=== PATIENT | female | born 1970 | race Caucasian/White ===

== ENCOUNTER 2018-02-12 11:16 | Emergency (ER) | payer MEDICAID ==
[~2018-02-12] VITALS: Ht 167.6 cm; Wt 80.7 kg
[2018-02-12] MEDS ORDERED: METF10007 PO (11:59)
[2018-02-12] MEDS ORDERED: CYCL-259 PO (11:59)
[2018-02-12] MEDS ORDERED: CITA40TA5 PO (11:59)
[2018-02-12] MEDS ORDERED: MELO15TA24 PO (11:59)
[2018-02-12] MEDS ORDERED: HYDR12.58 PO (11:59)
[2018-02-12] MEDS ORDERED: METH5TAB6 PO (11:59)
[2018-02-12] MEDS ORDERED: MUPI22OI2 TP (11:59)
[2018-02-12] MEDS ORDERED: TRAZ-136 PO (11:59)
[2018-02-12] MEDS ORDERED: LIDOCAINE-MPF 2%, 2ML ONE ×2 (12:19→12:41)
[2018-02-12] MEDS ORDERED: LIDOCAINE-MPF 1%, 5ML INFIL ONE (13:00)
[2018-02-12] MEDS ORDERED: BICILLIN-LA 1,200,000 UNITS/2 ML IM ONE (13:30)
[2018-02-12 14:12] VITALS: BP 96/45
== END 2018-02-12 14:14 | disposition home or self-care (01) ==
LOC: ED 13:25
DX: K04.7 Periapical abscess without sinus (principal); E11.9 Type 2 diabetes mellitus without complications; I10 Essential (primary) hypertension; Z87.891 Personal history of nicotine dependence
CPT/HCPCS: 10060; 96372; 99283; J0561

== ENCOUNTER 2018-02-15 13:50 | Inpatient (IN) | payer MEDICAID ==
[~2018-02-15] VITALS: Ht 167.6 cm; Wt 101.8 kg
[~2018-02-15 13:50] MED LIST: CITA40TA5 PO; CYCL-259 PO; HYDR12.58 PO; MELO15TA24 PO; METF10007 PO; METH5TAB6 PO; MUPI22OI2 TP; TRAZ-136 PO
[2018-02-15] MEDS ORDERED: FLUT15.87 NAS (14:28)
[2018-02-15] MEDS ORDERED: MORPHINE SULFATE 4 MG/ML, 1ML IVPush PRN ×2 (14:30→21:00)
[2018-02-15] MEDS ORDERED: PIPERACILLIN/TAZO/PMX 3.375GM 50 ML IVPB ONE (14:30)
[2018-02-15] MEDS ORDERED: MORPHINE SULFATE 4 MG/ML, 1ML ONE (14:56)
[2018-02-15] MEDS ORDERED: PIPERACILLIN/TAZO/PMX 3.375GM 50 ML ONE (14:56)
[2018-02-15 15:02] LABS: BASOPHILS # (AUTO) 0.01 x10^3/uL (0-0.1); BASOPHILS % (AUTO) 0 % (0-1); EOSINOPHILS % (AUTO) 1 % (1-7); LYMPHOCYTES # (AUTO) 1.21 x10^3/uL (1-3.4); LYMPHOCYTES % (AUTO) 8 % (22-44); MD NO; MEAN CORPUSCULAR HEMOGLOBIN 30.7 pg (27.0-34.8); MEAN CORPUSCULAR HGB CONC 33.6 g/dL (32.4-35.8); MEAN CORPUSCULAR VOLUME 91.4 fL (80-100); MEAN PLATELET VOLUME 7.9 fL (7.4-10.4); MONOCYTES # (AUTO) 0.65 x10^3/uL (0.2-0.8); MONOCYTES % (AUTO) 4 % (2-9); NEUTROPHILS # (AUTO) 13.21 x10^3/uL (1.8-6.8); NEUTROPHILS % (AUTO) 87 % (42-75); PLATELET COUNT 470 x10^3/uL (130-400); RED BLOOD COUNT 4.16 x10^6/uL (3.82-5.3); RED CELL DISTRIBUTION WIDTH 13.3 % (9.6-15.2)
[2018-02-15 15:09] LABS: ALANINE AMINOTRANSFERASE 18 U/L (12-78); ALBUMIN 3.3 g/dL (3.4-5.0); ANION GAP 8 mmol/L (5-15); CALCIUM 9.4 mg/dL (8.5-10.1); CHLORIDE 97 mmol/L (98-107); CREATININE 0.86 mg/dL (0.55-1.02)
[2018-02-15 15:11] LABS: ALKALINE PHOSPHATASE 112 U/L (45-117); BILIRUBIN,TOTAL 0.3 mg/dL (0.2-1.0); TOTAL PROTEIN 8.7 g/dL (6.4-8.2)
[2018-02-15] MEDS ORDERED: OXYcodone/APAP 10/325MG TABLET ONE (15:17)
[2018-02-15] MEDS ORDERED: OXYcodone/APAP 10/325MG TABLET PO ONE (15:30)
[2018-02-15] MEDS ORDERED: OMNIPAQUE 350 MG/ML, 75ML BOTTLE ONE (16:07)
[2018-02-15] MEDS ORDERED: BUPIVACAINE 0.25% ONE (19:52)
[2018-02-15] MEDS ORDERED: LIDOCAINE 1%-EPI 1:100K, 30ML ONE (19:52)
[2018-02-15] MEDS ORDERED: EPINEPHRINE 1 MG/ML, 1ML ONE (19:57)
[2018-02-15] MEDS ORDERED: OXYMETAZOLINE NASAL SPRAY 0.05%, 15ML ONE (19:57)
[2018-02-15] MEDS ORDERED: FENTANYL PF 250 MCG/5ML ONE (20:11)
[2018-02-15] MEDS ORDERED: MIDAZOLAM 1 MG/ML, 2ML ONE (20:11)
[2018-02-15] MEDS ORDERED: FLUTICASONE NASAL SPRAY 16GM NAS SCH (20:30)
[2018-02-15] MEDS ORDERED: ONDANSETRON ODT 4 MG PO PRN (20:30)
[2018-02-15] MEDS ORDERED: hydrALAzine 20 MG/ML, 1ML IVPush PRN (20:30)
[2018-02-15] MEDS ORDERED: OXYcodone/APAP 5/325MG TABLET PO PRN (20:30)
[2018-02-15] MEDS ORDERED: DOCUSATE 100 MG CAPSULE PO PRN (20:30)
[2018-02-15] MEDS ORDERED: OXYcodone 5 MG/5 ML ORAL.SOL UDC PO PRN (21:00)
[2018-02-15] MEDS ORDERED: EPHEDRINE 50 MG/ML, 1ML IVPush PRN (21:00)
[2018-02-15] MEDS ORDERED: FENTANYL PF 100 MCG/2ML IV PRN (21:00)
[2018-02-15] MEDS ORDERED: PROMETHAZINE 25 MG/ML, 1ML IV PRN (21:00)
[2018-02-15] MEDS ORDERED: MEPERIDINE/PF 25MG/0.5ML IVPush PRN (21:00)
[2018-02-15] MEDS ORDERED: HYDROmorphone 1 MG/ML, 1ML IV PRN (21:00)
[2018-02-15] MEDS ORDERED: ONDANSETRON 2MG/ML, 2ML IV PRN (21:00)
[2018-02-15] MEDS ORDERED: ALBUTEROL SULFATE 2.5 MG/3 ML NPPB PRN (21:00)
[2018-02-15] MEDS ORDERED: PROMETHAZINE 12.5 MG SUPP PR PRN (21:00)
[2018-02-15] MEDS ORDERED: hydrALAzine 20 MG/ML, 1ML IV PRN (21:00)
[2018-02-15] MEDS ORDERED: HALOPERIDOL 5 MG/ML IV PRN (21:00)
[2018-02-15] MEDS ORDERED: ONDANSETRON ODT 8 MG PO PRN (21:00)
[2018-02-15] MEDS ORDERED: MIDAZOLAM 1 MG/ML, 2ML IV PRN (21:00)
[2018-02-15] MEDS ORDERED: LABETALOL 5MG/ML, 20ML IV PRN (21:00)
[2018-02-15] MEDS ORDERED: LORazepam 2 MG/ML, 1ML IVPush PRN (21:00)
[2018-02-15] MEDS ORDERED: OXYcodone 5 MG/5 ML ORAL.SOL UDC ONE (21:13)
[2018-02-15] MEDS ORDERED: FENTANYL PF 100 MCG/2ML ONE (21:13)
[2018-02-15 22:23] VITALS: BP 115/69
[2018-02-15] MEDS: CHLORHEXIDINE 15 ML BOTTLE MM SCH (23:04)
[2018-02-16 02:39] VITALS: BP 95/53
[2018-02-16 07:06] VITALS: BP 88/55
[2018-02-16 07:22] LABS: MEAN CORPUSCULAR HGB CONC 33.3 g/dL (32.4-35.8); MEAN CORPUSCULAR VOLUME 90.2 fL (80-100); MEAN PLATELET VOLUME 7.6 fL (7.4-10.4); PLATELET COUNT 475 x10^3/uL (130-400); RED BLOOD COUNT 3.87 x10^6/uL (3.82-5.3); RED CELL DISTRIBUTION WIDTH 13.4 % (9.6-15.2)
[2018-02-16 07:33] LABS: ANION GAP 7 mmol/L (5-15); CALCIUM 9.3 mg/dL (8.5-10.1); CHLORIDE 99 mmol/L (98-107); CREATININE 0.89 mg/dL (0.55-1.02)
[2018-02-16 07:53] LABS: BASOPHILS # (AUTO) 0.02 x10^3/uL (0-0.1); BASOPHILS % (AUTO) 0 % (0-1); EOSINOPHILS % (AUTO) 0 % (1-7); LYMPHOCYTES # (AUTO) 0.67 x10^3/uL (1-3.4); LYMPHOCYTES % (AUTO) 5 % (22-44); MD SCAN; MONOCYTES # (AUTO) 0.32 x10^3/uL (0.2-0.8); MONOCYTES % (AUTO) 2 % (2-9); NEUTROPHILS # (AUTO) 13.55 x10^3/uL (1.8-6.8); NEUTROPHILS % (AUTO) 93 % (42-75)
[2018-02-16] MEDS ORDERED: SODIUM CHLORIDE 0.9% 1,000 ML IV SCH (08:00)
[2018-02-16] MEDS ORDERED: SODIUM CHLORIDE 0.9%, 500ML IVBOLUS ONE (08:00)
[2018-02-16] MEDS: CITALOPRAM 20 MG TABLET PO SCH (08:09)
[2018-02-16] MEDS: METHIMAZOLE 5 MG TAB PO SCH (08:10)
[2018-02-16] MEDS: MELOXICAM 15 MG TABLET PO SCH (08:10)
[2018-02-16] MEDS: CYCLOBENZAPRINE 10 MG TABLET PO SCH (08:10)
[2018-02-16] MEDS: CHLORHEXIDINE 15 ML BOTTLE MM SCH ×3 (08:11→20:41)
[2018-02-16] MEDS: metFORMIN 500 MG TABLET PO SCH (08:11)
[2018-02-16] MEDS: TRAZODONE 50MG TABLET PO SCH (08:12)
[2018-02-16] MEDS ORDERED: HYDROCHLOROTHIAZIDE 12.5 MG CAPSULE PO SCH ×2 (09:00)
[2018-02-16] MEDS: SODIUM CHLORIDE 0.9% 1,000 ML IV SCH (11:27)
[2018-02-16] MEDS: PIPERACILLIN/TAZO/PMX 3.375GM 50 ML IV SCH ×3 (11:27→22:39)
[2018-02-16 13:54] VITALS: BP 96/52
[2018-02-16] MEDS ORDERED: PHARMACOKINETIC MONITORING MC PRN (19:30)
[2018-02-16] MEDS ORDERED: VANCOMYCIN PER PHARMACY MC PRN (19:30)
[2018-02-16] MEDS ORDERED: PHARMACOKINETIC CONSULTATION MC ONE (19:30)
[2018-02-16 19:56] VITALS: BP 98/60
[2018-02-16] MEDS ORDERED: PROPOFOL 10 MG/ML, 20ML ONE (20:16)
[2018-02-16] MEDS ORDERED: ROCURONIUM 10 MG/ML,10ML ONE (20:16)
[2018-02-16] MEDS ORDERED: ONDANSETRON 2MG/ML, 2ML ONE (20:16)
[2018-02-16] MEDS ORDERED: DEXAMETHASONE 4 MG/ML, 1ML ONE (20:16)
[2018-02-16] MEDS ORDERED: SUCCINYLCHOLINE 20 MG/ML, 10ML ONE (20:16)
[2018-02-16] MEDS ORDERED: KETOROLAC 30 MG/1 ML ONE (20:16)
[2018-02-16] MEDS: VANCOMYCIN 1,500 MG in SODIUM CHLORIDE 0.9% 250 ML IV SCH (20:41)
[2018-02-16 21:01] VITALS: BP 94/61
[2018-02-16 21:52] VITALS: BP 91/61
[2018-02-17 01:24] VITALS: BP 92/57
[2018-02-17] MEDS: SODIUM CHLORIDE 0.9% 1,000 ML IV SCH ×2 (02:03→21:20)
[2018-02-17] MEDS: PIPERACILLIN/TAZO/PMX 3.375GM 50 ML IV SCH ×2 (04:43→11:10)
[2018-02-17 05:30] LABS: BASOPHILS # (AUTO) 0.08 x10^3/uL (0-0.1); BASOPHILS % (AUTO) 1 % (0-1); EOSINOPHILS # (AUTO) 0.31 x10^3/uL (0-0.4); EOSINOPHILS % (AUTO) 3 % (1-7); LYMPHOCYTES % (AUTO) 25 % (22-44); MD NO; MEAN CORPUSCULAR HEMOGLOBIN 30.9 pg (27.0-34.8); MEAN CORPUSCULAR HGB CONC 33.6 g/dL (32.4-35.8); MEAN CORPUSCULAR VOLUME 92.1 fL (80-100); MEAN PLATELET VOLUME 7.7 fL (7.4-10.4); MONOCYTES # (AUTO) 0.75 x10^3/uL (0.2-0.8); MONOCYTES % (AUTO) 8 % (2-9); NEUTROPHILS # (AUTO) 5.68 x10^3/uL (1.8-6.8); NEUTROPHILS % (AUTO) 62 % (42-75); PLATELET COUNT 387 x10^3/uL (130-400); RED BLOOD COUNT 3.14 x10^6/uL (3.82-5.3); RED CELL DISTRIBUTION WIDTH 13.3 % (9.6-15.2)
[2018-02-17 05:34] LABS: ALBUMIN 2.3 g/dL (3.4-5.0); ANION GAP 7 mmol/L (5-15); CALCIUM 8.4 mg/dL (8.5-10.1); CHLORIDE 105 mmol/L (98-107); CREATININE 1.07 mg/dL (0.55-1.02)
[2018-02-17] MEDS ORDERED: PHARMACY MAY ADJ FOR RENAL FX MC PRN (06:30)
[2018-02-17 06:54] VITALS: BP 102/54
[2018-02-17] MEDS: TRAZODONE 50MG TABLET PO SCH (09:00)
[2018-02-17] MEDS: CITALOPRAM 20 MG TABLET PO SCH (09:14)
[2018-02-17] MEDS: metFORMIN 500 MG TABLET PO SCH (09:14)
[2018-02-17] MEDS: CYCLOBENZAPRINE 10 MG TABLET PO SCH (09:14)
[2018-02-17] MEDS: MELOXICAM 15 MG TABLET PO SCH (09:14)
[2018-02-17] MEDS: VANCOMYCIN 1,500 MG in SODIUM CHLORIDE 0.9% 250 ML IV SCH (09:14)
[2018-02-17] MEDS: CHLORHEXIDINE 15 ML BOTTLE MM SCH ×3 (09:15→20:19)
[2018-02-17] MEDS: METHIMAZOLE 5 MG TAB PO SCH (09:30)
[2018-02-17] MEDS: CLINDAMYCIN PMX 600MG/50ML 50 ML IV SCH ×2 (13:34→20:17)
[2018-02-17] MEDS: LACTOBACILLUS CHEW TABLET PO SCH ×3 (13:34→20:19)
[2018-02-17 14:08] VITALS: BP 90/59
[2018-02-17 20:32] VITALS: BP 96/50
[2018-02-18] MEDS: CLINDAMYCIN PMX 600MG/50ML 50 ML IV SCH ×4 (02:08→20:00)
[2018-02-18] MEDS: SODIUM CHLORIDE 0.9% 1,000 ML IV SCH ×4 (02:08→20:01)
[2018-02-18 02:54] VITALS: BP 101/52
[2018-02-18 04:57] LABS: BASOPHILS # (AUTO) 0.13 x10^3/uL (0-0.1); BASOPHILS % (AUTO) 2 % (0-1); EOSINOPHILS # (AUTO) 0.66 x10^3/uL (0-0.4); EOSINOPHILS % (AUTO) 8 % (1-7); LYMPHOCYTES # (AUTO) 2.26 x10^3/uL (1-3.4); LYMPHOCYTES % (AUTO) 26 % (22-44); MD NO; MEAN CORPUSCULAR HEMOGLOBIN 30.6 pg (27.0-34.8); MEAN CORPUSCULAR HGB CONC 33.2 g/dL (32.4-35.8); MEAN CORPUSCULAR VOLUME 92.1 fL (80-100); MEAN PLATELET VOLUME 7.4 fL (7.4-10.4); MONOCYTES # (AUTO) 0.84 x10^3/uL (0.2-0.8); MONOCYTES % (AUTO) 10 % (2-9); NEUTROPHILS # (AUTO) 4.79 x10^3/uL (1.8-6.8); NEUTROPHILS % (AUTO) 55 % (42-75); PLATELET COUNT 439 x10^3/uL (130-400); RED BLOOD COUNT 3.28 x10^6/uL (3.82-5.3); RED CELL DISTRIBUTION WIDTH 13.6 % (9.6-15.2)
[2018-02-18 05:02] LABS: ALBUMIN 2.4 g/dL (3.4-5.0); ANION GAP 3 mmol/L (5-15); CALCIUM 7.8 mg/dL (8.5-10.1); CHLORIDE 107 mmol/L (98-107); CREATININE 0.93 mg/dL (0.55-1.02)
[2018-02-18] MEDS: LACTOBACILLUS CHEW TABLET PO SCH ×4 (05:34→20:00)
[2018-02-18 07:21] VITALS: BP 95/58
[2018-02-18] MEDS: CITALOPRAM 20 MG TABLET PO SCH (09:07)
[2018-02-18] MEDS: TRAZODONE 50MG TABLET PO SCH (09:07)
[2018-02-18] MEDS: CHLORHEXIDINE 15 ML BOTTLE MM SCH ×3 (09:07→20:00)
[2018-02-18] MEDS: CYCLOBENZAPRINE 10 MG TABLET PO SCH (09:07)
[2018-02-18] MEDS: MELOXICAM 15 MG TABLET PO SCH (09:07)
[2018-02-18] MEDS: METHIMAZOLE 5 MG TAB PO SCH (09:07)
[2018-02-18 13:21] VITALS: BP 106/61
[2018-02-18 20:09] VITALS: BP 99/55
[2018-02-19 01:04] VITALS: BP 103/77
[2018-02-19] MEDS: CLINDAMYCIN PMX 600MG/50ML 50 ML IV SCH ×4 (01:47→20:21)
[2018-02-19] MEDS: SODIUM CHLORIDE 0.9% 1,000 ML IV SCH (04:47)
[2018-02-19 05:15] LABS: BASOPHILS % (AUTO) 1 % (0-1); EOSINOPHILS # (AUTO) 0.79 x10^3/uL (0-0.4); EOSINOPHILS % (AUTO) 9 % (1-7); LYMPHOCYTES # (AUTO) 2.03 x10^3/uL (1-3.4); LYMPHOCYTES % (AUTO) 23 % (22-44); MD NO; MEAN CORPUSCULAR HGB CONC 32.6 g/dL (32.4-35.8); MEAN PLATELET VOLUME 7.5 fL (7.4-10.4); MONOCYTES # (AUTO) 0.55 x10^3/uL (0.2-0.8); MONOCYTES % (AUTO) 6 % (2-9); NEUTROPHILS % (AUTO) 61 % (42-75); PLATELET COUNT 507 x10^3/uL (130-400); RED BLOOD COUNT 3.33 x10^6/uL (3.82-5.3); RED CELL DISTRIBUTION WIDTH 13.6 % (9.6-15.2)
[2018-02-19 05:21] LABS: ALBUMIN 2.3 g/dL (3.4-5.0); ANION GAP 6 mmol/L (5-15); CALCIUM 8.4 mg/dL (8.5-10.1); CHLORIDE 110 mmol/L (98-107); CREATININE 0.84 mg/dL (0.55-1.02)
[2018-02-19] MEDS: LACTOBACILLUS CHEW TABLET PO SCH ×4 (06:05→20:21)
[2018-02-19] MEDS: MELOXICAM 15 MG TABLET PO SCH (07:42)
[2018-02-19] MEDS: CYCLOBENZAPRINE 10 MG TABLET PO SCH (07:42)
[2018-02-19] MEDS: CITALOPRAM 20 MG TABLET PO SCH (07:42)
[2018-02-19] MEDS: CHLORHEXIDINE 15 ML BOTTLE MM SCH ×3 (07:42→20:21)
[2018-02-19] MEDS: METHIMAZOLE 5 MG TAB PO SCH (07:42)
[2018-02-19 07:45] VITALS: BP 102/54
[2018-02-19] MEDS: OXYcodone/APAP 5/325MG TABLET PO PRN (10:25)
[2018-02-19 14:07] VITALS: BP 101/62
[2018-02-19 19:39] VITALS: BP 105/64
[2018-02-19] MEDS: TRAZODONE 50MG TABLET PO SCH (20:21)
[2018-02-20] MEDS: CLINDAMYCIN PMX 600MG/50ML 50 ML IV SCH ×4 (01:53→20:02)
[2018-02-20 02:01] VITALS: BP 102/64
[2018-02-20 06:07] LABS: ALBUMIN 2.2 g/dL (3.4-5.0); ANION GAP 6 mmol/L (5-15); CALCIUM 8.3 mg/dL (8.5-10.1); CHLORIDE 108 mmol/L (98-107); CREATININE 0.89 mg/dL (0.55-1.02)
[2018-02-20] MEDS: LACTOBACILLUS CHEW TABLET PO SCH ×4 (06:21→20:02)
[2018-02-20] MEDS ORDERED: SODIUM CHLORIDE 0.9%, 500ML IVBOLUS ONE (08:00)
[2018-02-20] MEDS: MELOXICAM 15 MG TABLET PO SCH (08:20)
[2018-02-20] MEDS: CHLORHEXIDINE 15 ML BOTTLE MM SCH ×3 (08:20→20:03)
[2018-02-20] MEDS: TRAZODONE 50MG TABLET PO SCH (08:20)
[2018-02-20] MEDS: CITALOPRAM 20 MG TABLET PO SCH (08:20)
[2018-02-20] MEDS: CYCLOBENZAPRINE 10 MG TABLET PO SCH (08:20)
[2018-02-20 09:30] VITALS: BP 120/76
[2018-02-20] MEDS: METHIMAZOLE 5 MG TAB PO SCH (11:39)
[2018-02-20] MEDS: OXYcodone/APAP 5/325MG TABLET PO PRN (13:27)
[2018-02-20 14:10] VITALS: BP 120/74
[2018-02-20] MEDS ORDERED: OMNIPAQUE 350 MG/ML, 75ML BOTTLE ONE (16:02)
[2018-02-20] MEDS: SODIUM CHLORIDE 0.9% 1,000 ML IV SCH (17:12)
[2018-02-20 18:58] VITALS: BP 99/62
[2018-02-21 01:21] VITALS: BP 98/61
[2018-02-21] MEDS: CLINDAMYCIN PMX 600MG/50ML 50 ML IV SCH ×4 (01:33→19:50)
[2018-02-21] MEDS: SODIUM CHLORIDE 0.9% 1,000 ML IV SCH ×2 (05:41→20:53)
[2018-02-21] MEDS: LACTOBACILLUS CHEW TABLET PO SCH ×4 (05:41→20:52)
[2018-02-21 06:18] LABS: BASOPHILS # (AUTO) 0.06 x10^3/uL (0-0.1); BASOPHILS % (AUTO) 1 % (0-1); EOSINOPHILS # (AUTO) 1.25 x10^3/uL (0-0.4); EOSINOPHILS % (AUTO) 11 % (1-7); LYMPHOCYTES # (AUTO) 1.68 x10^3/uL (1-3.4); LYMPHOCYTES % (AUTO) 15 % (22-44); MD NO; MEAN CORPUSCULAR HEMOGLOBIN 30.1 pg (27.0-34.8); MEAN CORPUSCULAR HGB CONC 32.7 g/dL (32.4-35.8); MEAN CORPUSCULAR VOLUME 91.9 fL (80-100); MEAN PLATELET VOLUME 7.2 fL (7.4-10.4); MONOCYTES # (AUTO) 0.65 x10^3/uL (0.2-0.8); MONOCYTES % (AUTO) 6 % (2-9); NEUTROPHILS # (AUTO) 7.85 x10^3/uL (1.8-6.8); NEUTROPHILS % (AUTO) 68 % (42-75); PLATELET COUNT 535 x10^3/uL (130-400); RED BLOOD COUNT 3.24 x10^6/uL (3.82-5.3); RED CELL DISTRIBUTION WIDTH 13.7 % (9.6-15.2)
[2018-02-21 06:25] LABS: ALBUMIN 2.4 g/dL (3.4-5.0); ANION GAP 5 mmol/L (5-15); CALCIUM 8.5 mg/dL (8.5-10.1); CHLORIDE 106 mmol/L (98-107)
[2018-02-21 06:27] LABS: CREATININE 0.84 mg/dL (0.55-1.02)
[2018-02-21] MEDS: METHIMAZOLE 5 MG TAB PO SCH (07:52)
[2018-02-21] MEDS: MELOXICAM 15 MG TABLET PO SCH (07:53)
[2018-02-21] MEDS: TRAZODONE 50MG TABLET PO SCH ×2 (07:53→20:52)
[2018-02-21] MEDS: CITALOPRAM 20 MG TABLET PO SCH (07:53)
[2018-02-21] MEDS: CYCLOBENZAPRINE 10 MG TABLET PO SCH (07:53)
[2018-02-21] MEDS: CHLORHEXIDINE 15 ML UDC MM SCH ×3 (07:54→20:52)
[2018-02-21 08:00] VITALS: BP 110/68
[2018-02-21 14:30] VITALS: BP 110/68
[2018-02-21] MEDS ORDERED: MIDAZOLAM 1 MG/ML, 2ML ONE (16:23)
[2018-02-21] MEDS ORDERED: LIDOCAINE 1%-EPI 1:100K, 30ML ONE (16:23)
[2018-02-21] MEDS ORDERED: FENTANYL PF 100 MCG/2ML ONE (16:23)
[2018-02-21] MEDS ORDERED: PROPOFOL 10 MG/ML, 20ML ONE (16:23)
[2018-02-21] MEDS ORDERED: BACITRACIN 50,000 UNIT ONE (16:30)
[2018-02-21] MEDS ORDERED: CEFAZOLIN 1,000 MG ONE (16:41)
[2018-02-21] MEDS ORDERED: OXYcodone 5 MG/5 ML ORAL.SOL UDC ONE (17:25)
[2018-02-21] MEDS ORDERED: PROMETHAZINE 25 MG/ML, 1ML IV PRN (17:30)
[2018-02-21] MEDS ORDERED: EPHEDRINE 50 MG/ML, 1ML IVPush PRN (17:30)
[2018-02-21] MEDS ORDERED: MEPERIDINE/PF 25MG/0.5ML IVPush PRN (17:30)
[2018-02-21] MEDS ORDERED: HYDROmorphone 1 MG/ML, 1ML IV PRN (17:30)
[2018-02-21] MEDS ORDERED: FENTANYL PF 100 MCG/2ML IV PRN (17:30)
[2018-02-21] MEDS ORDERED: ONDANSETRON 2MG/ML, 2ML IV PRN (17:30)
[2018-02-21] MEDS ORDERED: LABETALOL 5MG/ML, 20ML IV PRN (17:30)
[2018-02-21] MEDS ORDERED: OXYcodone 5 MG/5 ML ORAL.SOL UDC PO PRN (17:30)
[2018-02-21] MEDS ORDERED: hydrALAzine 20 MG/ML, 1ML IV PRN (17:30)
[2018-02-21] MEDS ORDERED: LORazepam 2 MG/ML, 1ML IVPush PRN (17:30)
[2018-02-21] MEDS ORDERED: MIDAZOLAM 1 MG/ML, 2ML IV PRN (17:30)
[2018-02-21] MEDS ORDERED: HALOPERIDOL 5 MG/ML IV PRN (17:30)
[2018-02-21] MEDS ORDERED: ONDANSETRON ODT 8 MG PO PRN (17:30)
[2018-02-21] MEDS ORDERED: ALBUTEROL SULFATE 2.5 MG/3 ML NPPB PRN (17:30)
[2018-02-21] MEDS ORDERED: PROMETHAZINE 12.5 MG SUPP PR PRN (17:30)
[2018-02-21 19:06] VITALS: BP 113/75
[2018-02-21 23:33] VITALS: BP 93/50
[2018-02-22] MEDS: CLINDAMYCIN PMX 600MG/50ML 50 ML IV SCH ×4 (01:48→18:38)
[2018-02-22 02:54] VITALS: BP 92/58
[2018-02-22] MEDS: LACTOBACILLUS CHEW TABLET PO SCH ×4 (05:24→21:20)
[2018-02-22 05:52] LABS: BASOPHILS % (AUTO) 1 % (0-1); EOSINOPHILS % (AUTO) 0 % (1-7); LYMPHOCYTES # (AUTO) 1.02 x10^3/uL (1-3.4); LYMPHOCYTES % (AUTO) 6 % (22-44); MD NO; MEAN CORPUSCULAR HEMOGLOBIN 30.6 pg (27.0-34.8); MEAN CORPUSCULAR HGB CONC 33.5 g/dL (32.4-35.8); MEAN CORPUSCULAR VOLUME 91.6 fL (80-100); MEAN PLATELET VOLUME 7.3 fL (7.4-10.4); MONOCYTES # (AUTO) 0.17 x10^3/uL (0.2-0.8); MONOCYTES % (AUTO) 1 % (2-9); NEUTROPHILS % (AUTO) 92 % (42-75); PLATELET COUNT 541 x10^3/uL (130-400); RED BLOOD COUNT 3.28 x10^6/uL (3.82-5.3); RED CELL DISTRIBUTION WIDTH 13.6 % (9.6-15.2)
[2018-02-22 07:15] VITALS: BP 115/76
[2018-02-22] MEDS: MELOXICAM 15 MG TABLET PO SCH (07:28)
[2018-02-22] MEDS: CITALOPRAM 20 MG TABLET PO SCH (07:28)
[2018-02-22] MEDS: OXYcodone/APAP 5/325MG TABLET PO PRN (07:28)
[2018-02-22] MEDS: METHIMAZOLE 5 MG TAB PO SCH (07:29)
[2018-02-22] MEDS: CYCLOBENZAPRINE 10 MG TABLET PO SCH (07:29)
[2018-02-22] MEDS: CHLORHEXIDINE 15 ML UDC MM SCH ×3 (07:29→21:21)
[2018-02-22] MEDS: SODIUM CHLORIDE 0.9% 1,000 ML IV SCH (07:30)
[2018-02-22 13:10] VITALS: BP 99/61
[2018-02-22 18:28] VITALS: BP 96/60
[2018-02-22] MEDS: TRAZODONE 50MG TABLET PO SCH (21:21)
[2018-02-23 02:07] VITALS: BP 98/62
[2018-02-23] MEDS: CLINDAMYCIN PMX 600MG/50ML 50 ML IV SCH ×3 (02:11→13:27)
[2018-02-23] MEDS: OXYcodone/APAP 5/325MG TABLET PO PRN ×2 (02:29→11:52)
[2018-02-23] MEDS: LACTOBACILLUS CHEW TABLET PO SCH ×3 (05:11→15:15)
[2018-02-23 05:54] LABS: BASOPHILS # (AUTO) 0.03 x10^3/uL (0-0.1); BASOPHILS % (AUTO) 0 % (0-1); EOSINOPHILS # (AUTO) 0.52 x10^3/uL (0-0.4); EOSINOPHILS % (AUTO) 5 % (1-7); LYMPHOCYTES # (AUTO) 2.55 x10^3/uL (1-3.4); LYMPHOCYTES % (AUTO) 24 % (22-44); MD NO; MEAN CORPUSCULAR HGB CONC 32.6 g/dL (32.4-35.8); MEAN PLATELET VOLUME 7.3 fL (7.4-10.4); MONOCYTES # (AUTO) 0.53 x10^3/uL (0.2-0.8); MONOCYTES % (AUTO) 5 % (2-9); NEUTROPHILS # (AUTO) 7.05 x10^3/uL (1.8-6.8); NEUTROPHILS % (AUTO) 66 % (42-75); PLATELET COUNT 481 x10^3/uL (130-400); RED BLOOD COUNT 3.12 x10^6/uL (3.82-5.3); RED CELL DISTRIBUTION WIDTH 14.2 % (9.6-15.2)
[2018-02-23 06:58] VITALS: BP 92/61
[2018-02-23] MEDS: CHLORHEXIDINE 15 ML UDC MM SCH ×2 (08:57→15:15)
[2018-02-23] MEDS: METHIMAZOLE 5 MG TAB PO SCH (08:57)
[2018-02-23] MEDS: MELOXICAM 15 MG TABLET PO SCH (08:57)
[2018-02-23] MEDS: CYCLOBENZAPRINE 10 MG TABLET PO SCH (08:57)
[2018-02-23] MEDS: CITALOPRAM 20 MG TABLET PO SCH (08:57)
[2018-02-23 13:12] VITALS: BP 97/63
[2018-02-23] MEDS ORDERED: LACT1CAP24 PO (13:28)
[2018-02-23] MEDS ORDERED: CLIN300C8 PO (13:28)
[2018-02-23] MEDS ORDERED: LACT1TAB13 PO (13:28)
== END 2018-02-23 17:25 | disposition home or self-care (01) | DRG 131 ==
LOC: ED 14:54 → EDIP 17:48 → 4NOR 19:43
PROVIDERS: ADMIT Hospitalist; ATTEND Family Medicine
PROC: 0CDWXZ1 Extraction of Upper Tooth, Multiple, External Approach (ICD-10-PCS; 2018-02-15)
PROC: 0C9W0Z1 Drainage of Upper Tooth, Open Approach, Multiple (ICD-10-PCS; 2018-02-15)
PROC: 0NQR0ZZ Repair Maxilla, Open Approach (ICD-10-PCS; principal; 2018-02-15 19:45)
DX: K05.219 Aggressive periodontitis, localized, unspecified severity (principal); N17.0 Acute kidney failure with tubular necrosis; K12.2 Cellulitis and abscess of mouth; L03.211 Cellulitis of face; F33.0 Major depressive disorder, recurrent, mild; L02.01 Cutaneous abscess of face; K04.6 Periapical abscess with sinus; E28.2 Polycystic ovarian syndrome; E05.90 Thyrotoxicosis, unspecified without thyrotoxic crisis or storm; E11.9 Type 2 diabetes mellitus without complications; I10 Essential (primary) hypertension; K02.9 Dental caries, unspecified; Z83.3 Family history of diabetes mellitus; Z87.891 Personal history of nicotine dependence
CPT/HCPCS: 36415; 70100; 70487; 80048; 80053; 82040; 83605; 85025; 87040; 87070; 87075; 87077; 87186; 87205; 99285; G0378; J0171; J0690; J1100; J1885; J2250; J2405; J2543; J2704; J3010; J3370; J3490; Q9967; J0330; J7030; J7040; J7050

== ENCOUNTER 2020-05-15 17:26 | Inpatient (IN) | payer MEDICAID ==
[~2020-05-15] VITALS: Ht 167.6 cm; Wt 105.5 kg
[~2020-05-15 17:26] MED LIST changes: +CLIN300C9 PO; +FLUT15.87 NAS; -HYDR12.58 PO; +HYDROCHLOROTH12.5 MG PO; +LACT1CAP24 PO; +LACT1TAB13 PO; -TRAZ-136 PO; +TRAZ50TA66 PO
--- NOTE | 2020-05-15 17:57 | NUR ---
PT TO RM AT THIS TIME. ERMD IN TO EVAL PT. AWAITING ORDERS. PT TO ALL MONITORS.
[2020-05-15] MEDS ORDERED: IBUPROFEN 200 MG TABLET PO ONE (18:00)
--- NOTE | 2020-05-15 18:07 | NUR ---
ATTEMPT TO OBTAIN PIV ACCESS, PT REFUSING AT THIS TIME, VERY FIGITY/ANXIOUS IN RM, WILL ATTEMPT US GUIDED. ERMD UPDATED ON LATEST BP 90/50. ORDERS RECEIVED FOR FLUID BOLUS. BC ORDERED. DISCUSSED PT MEETING SEPSIS CRITERIA 1814-DELAY IN CARE, LABS NOT DRAWN D/T PT REFUSING. US PIV ACCESS FAIL X1.
[2020-05-15] MEDS ORDERED: IBUPROFEN 200 MG TABLET ONE (18:12)
--- NOTE | 2020-05-15 18:24 | NUR ---
PIV IN AT THIS TIME, PT MEDICATED PER MAR
[2020-05-15] MEDS ORDERED: SODIUM CHLORIDE 0.9% 1,000ML IVBOLUS ONE ×3 (18:30→20:30)
[2020-05-15] MEDS ORDERED: SODIUM CHLORIDE FLUSH 10ML SYR IVF ONE (18:30)
[2020-05-15 18:31] LABS: BASOPHILS % (AUTO) 1 % (0-1); EOSINOPHILS % (AUTO) 1 % (1-7); LYMPHOCYTES % (AUTO) 4 % (22-44); MEAN CORPUSCULAR HEMOGLOBIN 27.4 pg (27.0-34.8); MEAN CORPUSCULAR HGB CONC 33.6 g/dL (32.4-35.8); MEAN PLATELET VOLUME 7.9 fL (7.4-10.4); MONOCYTES % (AUTO) 9 % (2-9); NEUTROPHILS % (AUTO) 86 % (42-75); PLATELET COUNT 406 x10^3/uL (130-400); RED BLOOD COUNT 4.33 x10^6/uL (3.82-5.3); RED CELL DISTRIBUTION WIDTH 15.4 % (9.6-15.2)
[2020-05-15 18:39] LABS: ALBUMIN 2.2 g/dL (3.4-5.0); ANION GAP 7 mmol/L (5-15); CHLORIDE 94 mmol/L (98-107); CREATININE 0.99 mg/dL (0.55-1.02)
[2020-05-15 18:50] LABS: MD SCAN
--- NOTE | 2020-05-15 18:58 | NUR ---
REPORT RECIEVED FROM RICO MORALES. SPOKE WITH MD ABOUT SEPTIC PROTOCOL. ANOTHER LITER OF NS ORDERED
[2020-05-15] MEDS ORDERED: LIDOCAINE 1%, 10ML INFIL ONE (19:30)
[2020-05-15] MEDS ORDERED: LIDOCAINE-MPF 1%, 5ML ONE (19:37)
--- NOTE | 2020-05-15 20:10 | NUR ---
PT MEETS SEPTIC PROTOCOL. PER MD PT HAS BEEN ON PO ANTIBOTICS FOR LAST 2 DAYS, NO NEEDS FOR IV ABX AT THIS TIME. BC DRAWN. PT TO GET 2,850 ML BOLUS TOTAL. PT ON 3RD BOLUS AT THIS TIME. I/D READY AT BEDSIDE FOR PROVIDER
--- NOTE | 2020-05-15 20:30 | NUR ---
provider at bedside for i/d
[2020-05-15] MEDS ORDERED: VANCOMYCIN 2,300 MG in SODIUM CHLORIDE 0.9% 500 ML IV ONE (21:30)
[2020-05-15] MEDS ORDERED: VANCOMYCIN PER PHARMACY MC PRN ×2 (21:30→23:30)
[2020-05-15] MEDS ORDERED: ACETAMINOPHEN 325 MG TABLET ONE (21:37)
[2020-05-15] MEDS ORDERED: SODIUM CHLORIDE 0.9% 1,000 ML IV ONE ×2 (22:00)
[2020-05-15] MEDS ORDERED: ACETAMINOPHEN 325 MG TABLET PO ONE (22:00)
[2020-05-15] MEDS ORDERED: SODIUM CHLORIDE FLUSH 10ML SYR IVF PRN (22:00)
[2020-05-15] MEDS ORDERED: ACETAMINOPHEN 650 MG SUPP PR ONE (22:00)
--- NOTE | 2020-05-15 22:05 | NUR ---
MD AWARE OF LOW BLOOD PRESSURE. MANTANANCE FLUID ORDERED, ABX STARTED. PT ASYMPTOMATIC AT THIS TIME, DENIESDIZZINESS, LIGHTHEADEDNESS, PT RESTLESS IN BED AND LAUGHING AT TV
[2020-05-15] MEDS ORDERED: MIDAZOLAM 1 MG/ML, 2ML ONE (22:45)
--- NOTE | 2020-05-15 22:49 | NUR ---
PT'S BLOOD PRESSURE GETTING LOWER AND LOWER, HOSPITALIST NOTIFIED AND ERP AWARE. PT NEEDING CENTRAL LINE. SPOKE WITH PATIENT, PT IS ANXIOUS ABOUT PROCEDURE. ERP TO SPEAK WITH PATIENT
[2020-05-15] MEDS ORDERED: MIDAZOLAM 1 MG/ML, 5ML IVPush ONE (23:00)
--- NOTE | 2020-05-15 23:00 | NUR ---
REPORT GIVEN TO RICO PALACIOS
[2020-05-15] MEDS: SODIUM CHLORIDE 0.9% 1,000 ML IV SCH (23:30)
[2020-05-15] MEDS ORDERED: NOREPINEPHRINE 8 MG in SODIUM CHLORIDE 0.9% 242 ML IV PRN ×2 (23:30)
[2020-05-15] MEDS ORDERED: MELATONIN 5 MG TABLET PO PRN (23:30)
[2020-05-15] MEDS ORDERED: ONDANSETRON 2MG/ML, 2ML IVPush PRN (23:30)
[2020-05-15] MEDS ORDERED: morphine SULFATE 10 MG/ML, 1ML IVPush PRN (23:30)
[2020-05-15] MEDS ORDERED: ACETAMINOPHEN 325 MG TABLET PO PRN (23:30)
[2020-05-15] MEDS ORDERED: PHARMACY MAY ADJ FOR RENAL FX MC PRN (23:30)
[2020-05-15] MEDS ORDERED: PIPERACILLIN/TAZO/PMX 3.375GM 50 ML ONE (23:31)
[2020-05-15] MEDS ORDERED: ENOXAPARIN 40 MG/0.4 ML ONE (23:31)
[2020-05-15 23:51] LABS: ALBUMIN 1.6 g/dL (3.4-5.0); BILIRUBIN, DIRECT 0.4 mg/dL (0.1-0.2)
[2020-05-15 23:53] LABS: BILIRUBIN,INDIRECT 0.4 mg/dL (0.0-2.0); BILIRUBIN,TOTAL 0.8 mg/dL (0.2-1.0); TOTAL PROTEIN 5.6 g/dL (6.4-8.2)
[2020-05-15] MEDS: ENOXAPARIN 40 MG/0.4 ML SQ SCH (23:53)
--- NOTE | 2020-05-16 00:38 | NUR ---
PT BP DROPPPED TO 89/34, LEVOPHED STARTED AT THIS TIME.
[2020-05-16] MEDS: PIPERACILLIN/TAZO/PMX 3.375GM 50 ML IV SCH ×5 (00:45→23:51)
--- NOTE | 2020-05-16 01:35 | NUR ---
break rn: pt provided snacks per request. nad, denies additional needs at this time, wckevin.
--- NOTE | 2020-05-16 02:13 | NUR ---
task rn: pt placed on hospital bed and patient able to ambulate to restroom to urinate.
--- NOTE | 2020-05-16 03:15 | NUR ---
PT RESTING ON HOSPITAL BED WATCHING TV, VSS AND WILL CONT TO MONITOR.
--- NOTE | 2020-05-16 03:30 | NUR ---
report from gregg vasques
[2020-05-16 04:31] LABS: BASOPHILS % (AUTO) 0 % (0-1); EOSINOPHILS % (AUTO) 1 % (1-7); LYMPHOCYTES % (AUTO) 6 % (22-44); MEAN CORPUSCULAR HEMOGLOBIN 26.9 pg (27.0-34.8); MEAN CORPUSCULAR HGB CONC 32.6 g/dL (32.4-35.8); MONOCYTES % (AUTO) 9 % (2-9); NEUTROPHILS % (AUTO) 85 % (42-75); PLATELET COUNT 369 x10^3/uL (130-400); RED BLOOD COUNT 3.81 x10^6/uL (3.82-5.3); RED CELL DISTRIBUTION WIDTH 15.4 % (9.6-15.2)
[2020-05-16 04:33] LABS: ANION GAP 7 mmol/L (5-15); CALCIUM 8.1 mg/dL (8.5-10.1); CHLORIDE 107 mmol/L (98-107); CREATININE 0.77 mg/dL (0.55-1.02)
--- NOTE | 2020-05-16 04:35 | NUR ---
ananda placed for pt comfort. i educated her on its use.
--- NOTE | 2020-05-16 05:15 | NUR ---
pt not tolerating purewick. states "I cannot pee sitting in bed" bedside cammode provided.
[2020-05-16] MEDS ORDERED: PIPERACILLIN/TAZO/PMX 3.375GM 50 ML ONE ×2 (05:55→12:05)
[2020-05-16 05:57] LABS: MD SCAN
[2020-05-16 06:05] LABS: HCG UR SG 1.018 (1.003-1.030)
[2020-05-16 06:07] LABS: MICROSCOPIC INDICATED
[2020-05-16 06:15] LABS: AMPHETAMINE SCREEN, URINE Negative (Negative); BARBITURATE SCREEN, URINE Negative (Negative); BENZODIAZEPINE SCREEN, URINE Positive (Negative); CANNABINOID SCREEN, URINE Negative (Negative); COCAINE SCREEN, URINE Negative (Negative); METHADONE SCREEN, URINE Negative (Negative); OPIATE SCREEN, URINE Negative (Negative)
[2020-05-16] MEDS: SODIUM CHLORIDE 0.9% 1,000 ML IV SCH (06:50)
--- NOTE | 2020-05-16 07:00 | NUR ---
Report from Roya GÓMEZ
--- NOTE | 2020-05-16 07:04 | NUR ---
report to gregg soriano
[2020-05-16] MEDS ORDERED: POTASSIUM CHLORIDE 20 MEQ TAB.ER.PRT PO ONE (07:30)
[2020-05-16] MEDS ORDERED: CEFTRIAXONE PMX 1GM/50ML 50 ML IV SCH (07:30)
--- NOTE | 2020-05-16 07:50 | NUR ---
Levophed turned off from 0.03mcg/kg
[2020-05-16] MEDS ORDERED: CEFTRIAXONE PMX 1GM/50ML 50 ML ONE (08:26)
[2020-05-16] MEDS ORDERED: POTASSIUM CHLORIDE 20 MEQ TAB.ER.PRT ONE (08:26)
--- NOTE | 2020-05-16 08:49 | NUR ---
Dr. Lange called to sushil potentially downgrading from ICU status as b/p stable despite levo being turned off for the last hour
[2020-05-16] MEDS ORDERED: SODIUM CHLORIDE 0.9% 1,000 ML IV SCH (08:50)
--- NOTE | 2020-05-16 09:25 | NUR ---
Dr. Lange called for the second time to discuss downgrading icu status. no answer. throughput rn made aware Patient's blood pressure stabilized. eating breakfast. Denies discomfort
[2020-05-16] MEDS ORDERED: HYDROcodone/APAP 5/325 TABLET ONE (10:01)
[2020-05-16] MEDS: HYDROcodone/APAP 5/325 TABLET PO PRN ×2 (10:05→21:18)
--- NOTE | 2020-05-16 10:07 | NUR ---
Medicated per emar for increased abscess associated pain rated at 7/10
--- NOTE | 2020-05-16 10:21 | NUR ---
Dr. pike contacted. He was updated on patient's status. He responded "nope. she still needs icu." Throughput RN made aware
[2020-05-16] MEDS ORDERED: PHARMACOKINETIC MONITORING MC PRN (12:00)
[2020-05-16] MEDS ORDERED: PHARMACOKINETIC CONSULTATION MC ONE (12:00)
--- NOTE | 2020-05-16 12:00 | NUR ---
STANDING WEIGHT OBTAINED FOR PHARMACY ABX DOSINKG WITH REASSESSMENT. PAIENT CONTINUES TO HAVE STABLE HEMODYNAMICS WITHOUT VASOPRESSORS. APPEARS WELL. EATING UPDATED ON ESTIMATED POC
--- NOTE | 2020-05-16 12:23 | NUR ---
Spoke to Kristine GÓMEZ with wound care. She will assess patient's wound early this afternoon. Lunch tray ordered. Updated on estimated poc
[2020-05-16] MEDS: VANCOMYCIN 2,000 MG in SODIUM CHLORIDE 0.9% 500 ML IV SCH (12:46)
[2020-05-16] MEDS ORDERED: MORPHINE SULFATE 4 MG/ML, 1ML ONE (13:46)
--- NOTE | 2020-05-16 13:57 | NUR ---
AFTER PRE-MEDICATION WITH MORPHINE WOUND CARE AT BEDSIDE: PACKING REMOVED AND MASSIVE AMOUNT OF PUSS EXPRESSED (>300ML) WOUND CULTURE OBTAINED THEN WOUND RE-PACKED WITH 1/4 IODOFORM PACKING
[2020-05-16] MEDS ORDERED: ONDANSETRON 2MG/ML, 2ML ONE (14:35)
[2020-05-16 15:38] VITALS: BP 112/37
[2020-05-16] MEDS: TRAZODONE 50MG TABLET PO SCH (19:45)
[2020-05-16 20:00] VITALS: BP 108/44
[2020-05-16 21:55] VITALS: BP 96/62
[2020-05-16] MEDS: ENOXAPARIN 40 MG/0.4 ML SQ SCH (23:51)
[2020-05-17] VITALS (8 sets, daily range): BP systolic 81–116; BP diastolic 47–72
[2020-05-17] MEDS: VANCOMYCIN 2,000 MG in SODIUM CHLORIDE 0.9% 500 ML IV SCH ×2 (00:58→12:25)
[2020-05-17] MEDS: PIPERACILLIN/TAZO/PMX 3.375GM 50 ML IV SCH ×4 (05:31→23:36)
[2020-05-17] MEDS ORDERED: POTASSIUM CHLORIDE 20 MEQ TAB.ER.PRT PO ONE (07:30)
[2020-05-17] MEDS ORDERED: SODIUM CHLORIDE 0.9% 1,000 ML IV ONE (07:30)
[2020-05-17] MEDS: CITALOPRAM 20 MG TABLET PO SCH (07:39)
[2020-05-17] MEDS: metFORMIN XR 500 MG TAB.ER.24H PO SCH (07:39)
[2020-05-17] MEDS: FAMOTIDINE 20 MG TABLET PO SCH ×2 (09:30→22:25)
[2020-05-17] MEDS: HYDROcodone/APAP 5/325 TABLET PO PRN ×2 (11:10→22:29)
[2020-05-17] MEDS: TRAZODONE 50MG TABLET PO SCH (22:25)
[2020-05-18] MEDS: ENOXAPARIN 40 MG/0.4 ML SQ SCH ×2 (00:05→23:30)
[2020-05-18] MEDS: VANCOMYCIN 2,000 MG in SODIUM CHLORIDE 0.9% 500 ML IV SCH ×2 (00:05→13:05)
[2020-05-18 01:06] VITALS: BP 84/51
[2020-05-18 01:23] VITALS: BP 91/58
[2020-05-18] MEDS: PIPERACILLIN/TAZO/PMX 3.375GM 50 ML IV SCH ×4 (06:03→23:35)
[2020-05-18 06:53] VITALS: BP 100/57
[2020-05-18] MEDS: CITALOPRAM 20 MG TABLET PO SCH (07:50)
[2020-05-18] MEDS: HYDROcodone/APAP 5/325 TABLET PO PRN ×2 (07:50→17:43)
[2020-05-18] MEDS: metFORMIN XR 500 MG TAB.ER.24H PO SCH (07:50)
[2020-05-18] MEDS: FAMOTIDINE 20 MG TABLET PO SCH ×2 (07:52→20:36)
[2020-05-18] MEDS: POLYETHYLENE GLYCOL 17 GM PACKET PO SCH (15:00)
[2020-05-18 15:35] VITALS: BP 101/64
[2020-05-18 19:21] VITALS: BP 109/66
[2020-05-18] MEDS: TRAZODONE 50MG TABLET PO SCH (20:36)
[2020-05-19 03:18] VITALS: BP 109/70
[2020-05-19] MEDS: PIPERACILLIN/TAZO/PMX 3.375GM 50 ML IV SCH (05:24)
[2020-05-19] MEDS: HYDROcodone/APAP 5/325 TABLET PO PRN ×3 (06:11→20:29)
[2020-05-19 07:35] LABS: VANCOMYCIN,RANDOM 38.8 mcg/mL
[2020-05-19 07:53] VITALS: BP 114/55
[2020-05-19] MEDS: CITALOPRAM 20 MG TABLET PO SCH (10:08)
[2020-05-19] MEDS: FAMOTIDINE 20 MG TABLET PO SCH ×2 (10:08→20:29)
[2020-05-19] MEDS: POLYETHYLENE GLYCOL 17 GM PACKET PO SCH (10:08)
[2020-05-19] MEDS: metFORMIN XR 500 MG TAB.ER.24H PO SCH (10:08)
[2020-05-19 12:27] VITALS: BP 102/58
[2020-05-19 19:36] VITALS: BP 136/76
[2020-05-19] MEDS: TRAZODONE 50MG TABLET PO SCH (20:29)
[2020-05-19] MEDS: ENOXAPARIN 40 MG/0.4 ML SQ SCH (23:05)
[2020-05-20 00:59] VITALS: BP 136/83
[2020-05-20 06:30] VITALS: BP 128/73
[2020-05-20] MEDS ORDERED: DOXY100T PO (07:33)
[2020-05-20] MEDS: metFORMIN XR 500 MG TAB.ER.24H PO SCH (08:03)
[2020-05-20] MEDS: CITALOPRAM 20 MG TABLET PO SCH (08:03)
[2020-05-20] MEDS: FAMOTIDINE 20 MG TABLET PO SCH (08:04)
[2020-05-20] MEDS: POLYETHYLENE GLYCOL 17 GM PACKET PO SCH (08:04)
[2020-05-20] MEDS ORDERED: VANCOMYCIN 2,000 MG in SODIUM CHLORIDE 0.9% 500 ML IV SCH (10:00)
[2020-05-20] MEDS: HYDROcodone/APAP 5/325 TABLET PO PRN (10:09)
[2020-05-20] MEDS ORDERED: FAMO20TA7 PO (10:28)
[2020-05-20] MEDS ORDERED: METH5TAB6 PO (10:28)
[2020-05-20 13:04] VITALS: BP 151/83
== END 2020-05-20 18:24 | disposition home or self-care (01) | DRG 871 ==
LOC: ED 19:50 → UNDOADMIN 22:00 → EDIP 22:00 → CCU 05-16 15:34 → 3N 05-16 21:36
PROVIDERS: ADMIT Family Medicine; ATTEND Hospitalist
PROC: 02HV33Z Insertion of Infusion Device into Superior Vena Cava, Percutaneous Approach (ICD-10-PCS; principal; 2020-05-15)
PROC: B548ZZA Ultrasonography of Superior Vena Cava, Guidance (ICD-10-PCS; 2020-05-15)
PROC: 0H95XZZ Drainage of Chest Skin, External Approach (ICD-10-PCS; 2020-05-15)
DX: A41.02 Sepsis due to Methicillin resistant Staphylococcus aureus (principal); R65.21 Severe sepsis with septic shock; E87.1 Hypo-osmolality and hyponatremia; L02.213 Cutaneous abscess of chest wall; L02.411 Cutaneous abscess of right axilla; L03.313 Cellulitis of chest wall; E44.0 Moderate protein-calorie malnutrition; Z66 Do not resuscitate; B95.62 Methicillin resistant Staphylococcus aureus infection as the cause of diseases classified elsewhere; E03.9 Hypothyroidism, unspecified; E05.90 Thyrotoxicosis, unspecified without thyrotoxic crisis or storm; E11.9 Type 2 diabetes mellitus without complications; E28.2 Polycystic ovarian syndrome; E66.9 Obesity, unspecified; F32.9 Major depressive disorder, single episode, unspecified; I10 Essential (primary) hypertension; N61.1 Abscess of the breast and nipple; Z68.37 Body mass index [BMI] 37.0-37.9, adult; Z83.3 Family history of diabetes mellitus
CPT/HCPCS: 36415; 71045; 76642; 80048; 80076; 80202; 80307; 81001; 81025; 82040; 82533; 82565; 83036; 83605; 83735; 83930; 84100; 84145; 85025; 87040; 87070; 87077; 87081; 87086; 87186; 87205; 99291; G0378; J0696; J1650; J2250; J2405; J2543; J3370; J2270; J7030; J7040

== ENCOUNTER 2020-05-27 14:01 | Outpatient (CLI) | payer MEDICAID ==
[~2020-05-27 14:01] MED LIST changes: +DOXY100T PO; +FAMO20TA7 PO
== END 2020-05-27 23:59 | disposition home or self-care (01) ==
LOC: WOUND 14:01
PROVIDERS: ATTEND Internal Medicine
DX: T81.89XA Other complications of procedures, not elsewhere classified, initial encounter (principal); N61.1 Abscess of the breast and nipple; E11.9 Type 2 diabetes mellitus without complications; I10 Essential (primary) hypertension; E05.80 Other thyrotoxicosis without thyrotoxic crisis or storm; E66.01 Morbid (severe) obesity due to excess calories; E28.2 Polycystic ovarian syndrome; F32.9 Major depressive disorder, single episode, unspecified; Z87.891 Personal history of nicotine dependence; Z86.73 Personal history of transient ischemic attack (TIA), and cerebral infarction without residual deficits; Z86.14 Personal history of Methicillin resistant Staphylococcus aureus infection; Z90.49 Acquired absence of other specified parts of digestive tract; Z68.32 Body mass index [BMI] 32.0-32.9, adult; Y83.8 Other surgical procedures as the cause of abnormal reaction of the patient, or of later complication, without mention of misadventure at the time of the procedure; Y92.238 Other place in hospital as the place of occurrence of the external cause
CPT/HCPCS: 99214

== ENCOUNTER → 2020-06-03 | Outpatient (CLI) | payer MEDICAID | END | disposition home or self-care (01) | LOC: WOUND 13:40 | PROVIDERS: ATTEND Internal Medicine | DX: T81.89XD Other complications of procedures, not elsewhere classified, subsequent encounter (principal); N61.1 Abscess of the breast and nipple; E11.9 Type 2 diabetes mellitus without complications; I10 Essential (primary) hypertension; E05.80 Other thyrotoxicosis without thyrotoxic crisis or storm; E66.01 Morbid (severe) obesity due to excess calories; E28.2 Polycystic ovarian syndrome; F32.9 Major depressive disorder, single episode, unspecified; Z87.891 Personal history of nicotine dependence; Z86.73 Personal history of transient ischemic attack (TIA), and cerebral infarction without residual deficits; Z86.14 Personal history of Methicillin resistant Staphylococcus aureus infection; Z90.49 Acquired absence of other specified parts of digestive tract; Z68.32 Body mass index [BMI] 32.0-32.9, adult; Y83.8 Other surgical procedures as the cause of abnormal reaction of the patient, or of later complication, without mention of misadventure at the time of the procedure | CPT/HCPCS: 99212 ==